=== PATIENT | female | born 1985 ===

== ENCOUNTER → 2016-10-07 | Day surgery (SDC) | payer BC ==
[2016-10-04 13:20] VITALS: Ht 160 cm; Wt 74.5 kg
[~2016-10-07] VITALS: Ht 160 cm; Wt 74.5 kg
[~2016-10-07] MED LIST: ACET-749 PO; ACETAMINOPHEN 325 MG TAB PO PRN; ACETAMINOPHEN/CODEINE 300/30MG TAB PO ONE; ACETAZOLAMIDE 500 MG IV ONE; ACETAZOLAMIDE IV PUSH 250 MG in SYRINGE 0 ML IV ONE; ATROPINE SULFATE 0.1 MG/ML 5ML SYR IV PRN; ATROPINE SULFATE 1% OP OINT PER APPLICATION CHARGE ONE; BUPIVACAINE HCL 0.75% 10 ML AMP/VIAL ONE; CEFAZOLIN SOD 1 GM VIAL ONE; DEXAMETHASONE SOD INJ 4 MG/ML VIAL ONE; EpHEDrine SULFATE INJ 50 MG/ML AMP IV PRN; EpINEphrine INJ 1MG/ML AMP 1 MG/ML AMP ONE; FENTANYL CITRATE INJ 50 MCG/1 ML 2 ML VIAL ONE; HYALURONIDASE HUMAN 150 UNIT/ML INJ ONE; LACTATED RINGER'S 1000ML 500 ML IV SCH; LIDOCAINE HCL 2% 2 ML VIAL (20MG/ML) ONE; LIDOCAINE MPF 4% INJ INJ ONE; MIDAZOLAM HCL 1 MG/ML 2ML VIAL ONE; NEOMYCIN/POLYMYX/DEXAMETH OP OINT PER APP CHARGE ONE; NURSING VERBAL MED ORDER ONE; ONDANSETRON INJ 2 MG/ML 2 ML VIAL IV PRN; ONDANSETRON INJ 2 MG/ML 2 ML VIAL ONE; PATIENT'S ALLERGY INFO NEEDS ENTERED SCH; PHENYLEPHRINE HCL 2.5% OP SOLN PER DROP CHARGE OPR SCH; PROPARACAINE 0.5% OP SOLN PER DROP CHARGE OPL SCH; PROPARACAINE 0.5% OP SOLN PER DROP CHARGE OPR SCH; PROPOFOL IV EMULSION 10 MG/ML 20 ML VIAL IV ONE; TIMOLOL MALEATE 0.5% OP SOLN PER DROP CHARGE ONE; TRIAMCINOLONE ACETONIDE OPHTH 40 MG/ML VIAL STERILE IO ONE; TROPICAMIDE 1% OP SOLN PER DROP CHARGE OPR SCH
[2016-10-07] MEDS: PHENYLEPHRINE HCL 2.5% OP SOLN PER DROP CHARGE OPL SCH ×2 (08:46→08:51)
[2016-10-07] MEDS: TROPICAMIDE 1% OP SOLN PER DROP CHARGE OPL SCH ×2 (08:47→08:52)
--- NOTE | 2016-10-07 09:36 | History & Physical Bridge - [place] ---
H&P Re-Evaluation Bridge Note: I have examined the patient, reviewed the History & Physical and in the interval since the performance of the History & Physical I have noted the following changes of clinical significance: No changes noted
[2016-10-07] MEDS: ACETAZOLAMIDE 500 MG IV ONE ×2 (12:04→12:35)
--- NOTE | 2016-10-07 12:19 | [facility] Operative Report ---
Operative Report Date of Service Oct 07, 2016. Operative Report PREOPERATIVE DIAGNOSIS: left macula-off chronic retinal detachment, left eye. POSTOPERATIVE DIAGNOSIS: same. PROCEDURE: 1. Sceral Buckle with #41 band and #72 sleeve. 2. Injection of SF6 gas. 3. Posterior subTenon's injection of Triescence 20mg. All to the left eye CPT: 01503 SURGEON: Gallo Malcolm D.O. COMPLICATIONS: None. ESTIMATED BLOOD LOSS: None. SPECIMENS: None. ANESTHESIA: General INDICATIONS FOR PROCEDURE: Surgery is indicated to decrease risk of vision loss and potentially improve vision. CONSENT: The risks, benefits and alternatives were discussed with the patient including but not limited to decreased visual acuity, failure to achieve desired results, loss of the eye, infection, pain, glaucoma, lens changes, retinal tears, retinal detachment, the need for more procedures, drooping of the eyelid, blindness, and double vision. The patient is aware of risks and consents to the surgery. Consent is signed and on the chart. OPERATION AND FINDINGS: The patient was brought to the operating room where the patient was identified by name, date, and medical record number. The surgical site was confirmed with the informed written consent. The patient was placed under general anesthesia by the anesthesiology team. The patient was then prepped and draped in the usual sterile manner for retinal surgery. A wire lid speculum was placed and a 360 conjunctival peritomy was performed. Curved Jean Pierre's scissors were used to button hole the Tenon's capsule in all four oblique quadrants. A a 50:50 mixture of 4% lidocaine and 0.75% bupivacaine was administered in a retrobulbar fashion. A total of 4ml was administered. Next all four rectus muscles were isolated with 2-0 silk ties and then a cryoprobe was used to place cryopexy at each of the retinal retinal break at 4 o 'clock in the detachment which was from 3 to 8 o'clock. The location of the retinal breaks were marked with a marking pen. Next, a 41 style silicone band was placed under all four rectus muscles and reapproximated in the superior nasal quadrant with a style 70 sleeve. 5-0 nylon suture was used to anchor the scleral buckle in all four oblique quadrants to support the retinal breaks with the anterior bite being 4 mm posterior to the rectus muscle insertions. The suture knots were rotated posteriorly and the buckle height was adjusted appropriately. An anterior chamber paracentesis was performed and 0.3ml of SF6 100% was injection at the 12 o'clock location. The conjunctival peritomy was reapproximated with multiple interrupted 7-0 Vicryl sutures. The intraocular pressure was found to be within normal limits by palpation and subconjunctival injections of Kefzol and Dexamethasone were administered inferiorly and superiorly. Also 20mg of Triescence was administered in the posterior subTenon' s space inferiorly. The wire lid speculum was removed Maxitrol and Atropine ointment and timolol drops were applied to the surface of the eye. A light patch and shield were taped over the eye and the patient left the Operating Room in stable condition having tolerated the procedure well. A gas bracelet was place. The patient was informed not to remove this. The patient was instructed to use the position face down or right side down. DISPOSITION: The patient has an appointment the following morning in the Ophthalmology Clinic. The patient is to call immediately if there are any problems overnight. I attest to the content of the Intraoperative Record and any orders documented therein. Any exceptions are noted below.
--- NOTE | 2016-10-07 12:21 | Discharge Instructions-SurgCtr ---
Discharge Instructions Date of Service Oct 07, 2016. Visit Reason for Visit: Left Eye Retinal Detachment Discharge Discharge Diagnosis / Problem: same Discharge Goals Goal(s): Improve function Activity Recommendations Activity Limitations: per Instructions/Follow-up section Anesthesia . Post Anesthesia Instructions: If you have had General Anesthesia or IV Sedation: * Do not drive today. * Resume driving when surgeon permits. * Do not make important decisions or sign legal documents today. * Call surgeon for: 1. Temperature elevations greater than 101 degrees F. 2. Uncontrollable pain. 3. Excessive bleeding. 4. Persistent nausea and vomiting. 5. Medication intolerance (nausea, vomiting or rash). * For nausea and vomiting use only clear liquids such as: tea, soda, bouillon until nausea subsides, then gradually increase diet as tolerated. * If you have any concerns or questions, call your surgeon's office. If physician is unavailable and it is an emergency, call 911 or go to the nearest emergency room. . Instructions / Follow-Up Instructions / Follow-Up * May take Tylenol if needed for discomfort. * Do NOT lay flat on back and position head as follows: face down or right side down * Do NOT remove green bracelet until instructed to do so by your surgeon and follow these precautions: * No air travel * No travel above 2500 feet * No nitrous oxide (N2O). * Do NOT remove eye shield. * NO straining, heavy lifting (>15 pounds) or bending below waist. * Avoid getting water or soap directly into operative eye. * Do NOT rub eye. If you experience increasing eye pain not relieved by medication, please contact us immediately at [phone]. If you are unable to reach someone at the above number, call [phone] and ask to speak with the EYE DOCTOR STAFFING ASSISTANT. Inform them that you are a Dr. Malcolm patient who had recent surgery. Diet Recommendations Home Diet: resume previous diet Procedures Procedures Performed: Left Eye Scleral Buckle; Right Eye Laser Pending Studies Studies pending at discharge: no Medical Emergencies . Who to Call and When: Medical Emergencies: If at any time you feel your situation is an emergency, please call 911 immediately. . Non-Emergent Contact Non-Emergency issues call your: Dealer Analyst . . "Provider Documentation" section prepared by Gallo Malcolm.
--- NOTE | 2016-10-07 12:29 | [facility] Operative Report ---
Operative Report Date of Service Oct 07, 2016. Operative Report PREOPERATIVE DIAGNOSIS: lattice degeneration with holes, right eye. POSTOPERATIVE DIAGNOSIS: same. PROCEDURE: 1. Laser indirect ophthalmoscopy, right eye SURGEON: Gallo Malcolm D.O. COMPLICATIONS: None. ESTIMATED BLOOD LOSS: None. SPECIMENS: None. ANESTHESIA: general. INDICATIONS FOR PROCEDURE: Surgery is indicated to decrease risk of vision loss. CONSENT: The risks, benefits and alternatives were discussed with the patient including but not limited to decreased visual acuity, failure to achieve desired results, lens changes, retinal tears, retinal detachment, the need for more procedures. The patient is aware of risks and consents to the surgery. Consent is signed and on the chart. OPERATION AND FINDINGS: The patient was brought to the operating room where the patient was identified by name, date, and medical record number. The surgical site was confirmed with the informed written consent. The patient was placed under general anesthesia as she was having scleral buckle for retinal detachment in the fellow eye. Laser indirect ophthalmoscopy was used to place laser around all areas of lattice degeneration in the right eye. The patient tolerated the procedure well and was discharged in stable condition. DISPOSITION: The patient has an appointment the following morning in the Ophthalmology Clinic. The patient is to call immediately if there are any problems overnight. I attest to the content of the Intraoperative Record and any orders documented therein. Any exceptions are noted below.
[2016-10-07 12:51] VITALS: TEMP 36.3
[2016-10-07] MEDS: FENTANYL CITRATE INJ 50 MCG/1 ML 2 ML VIAL IV PRN ×2 (13:17→13:24)
--- NOTE | 2016-10-07 13:33 | Anesthesiology Progress Note ---
Anesthesia Post Op Note Date & Time Oct 07, 2016 at 13:33 Vital Signs Pain Intensity: 7.0 Vital Signs Past 12 Hours Date Time Temp Pulse Resp B/P Pulse Ox O2 Delivery O2 Flow Rate FiO2 10/07/16 12:54 56 15 99 10/07/16 12:54 57 15 10/07/16 12:51 36.3 56 20 133/95 99 Room Air 10/07/16 12:50 133/95 10/07/16 12:49 60 12 99 10/07/16 12:49 58 12 10/07/16 12:45 143/96 10/07/16 12:44 59 15 10/07/16 12:44 57 15 100 10/07/16 12:43 58 15 10/07/16 12:43 57 15 100 10/07/16 12:40 124/83 10/07/16 12:38 65 17 100 10/07/16 12:38 64 17 10/07/16 12:35 137/88 10/07/16 12:33 70 18 100 10/07/16 12:33 68 18 10/07/16 12:30 120/80 10/07/16 12:28 62 10/07/16 12:28 62 127/87 100 10/07/16 12:28 36.1 65 14 127/87 100 Diffusion Mask 10/07/16 09:00 36.5 65 16 114/78 98 Room Air Notes Mental Status: alert / awake / arousable, participated in evaluation Pt Amnestic to Procedure: Yes Nausea / Vomiting: adequately controlled Pain: improving with treatment Airway Patency, RR, SpO2: stable & adequate BP & HR: stable & adequate Hydration State: stable & adequate Anesthetic Complications: no major complications apparent Wrote for Tylenol #3 as surgeon has prescribed this for the patient to go home upon. Pain improving.
[2016-10-07 14:06] VITALS: BP 139/83; PULSE 57; O2SAT 97
== END | disposition home or self-care (01) ==
LOC: X.SURG 08:05 → EDBD 09:30
PROVIDERS: ATTEND Ophthalmology
DX: H35.411 Lattice degeneration of retina, right eye (principal); H33.022 Retinal detachment with multiple breaks, left eye; M19.90 Unspecified osteoarthritis, unspecified site; F17.200 Nicotine dependence, unspecified, uncomplicated; Z68.29 Body mass index [BMI] 29.0-29.9, adult; Z98.890 Other specified postprocedural states; Z83.511 Family history of glaucoma; Z82.49 Family history of ischemic heart disease and other diseases of the circulatory system; Z80.8 Family history of malignant neoplasm of other organs or systems; Z82.3 Family history of stroke